=== PATIENT | male | born 1955 | race Caucasian/White ===

== ENCOUNTER 2020-02-29 07:11 | Emergency (ER) | payer MEDICARE, SELFPAY ==
[2020-02-29] VITALS (8 sets, daily range): BP systolic 120–145; BP diastolic 72–87; PULSE 67–102; RESP 18–23; TEMP 36.8–37.3; O2SAT 93–98; BMI 27.3
--- NOTE | 2020-02-29 07:06 | ECG_ITS ---
APPROVED REPORT Exam: Resting ECG HR:83 bpm ECG Measurements Heart Rate 83 AXES NE 170 P 48 QRSd 92 QRS -7 QT 362 T 30 QTc 425 <Conclusion> Normal sinus rhythm Minimal voltage criteria for LVH, may be normal variant Borderline ECG Electronically signed by : Armando Cruz, 03/04/2020 12:06:25
--- NOTE | 2020-02-29 07:16 | XR_ITS ---
PROCEDURE: XR CHEST 2V CLINICAL HISTORY: soa COMPARISON: CXR CHEST(2 VIEWS-NOT PORTABLE) from 06/06/2014 FINDINGS: Lower cervical diskectomy, degenerative thoracic scoliosis, and patchy left lower lobe infiltrate is noted. Soft tissues are intact IMPRESSION: Left lower lobe infiltrate Dictated by: Tomy Garcia 02/29/2020 08:10 Electronically signed by Tomy Garcia in [facility] 02/29/2020 08:10
[2020-02-29 07:26] LABS: Basophils # 0.1 K/mm3 (0-0.2); Basophils % 0.5 % (0.1-2.0); Eosinophils # 0.3 K/mm3 (0.0-0.4); Eosinophils % 2.6 % (0.1-12.0); Hematocrit 41.4 % (42.0-52.0); Hemoglobin 13.5 g/dL (14.1-18.0); Lymphocytes % 9.2 % (10-50); Mean Corpuscular HGB Conc 32.5 g/dL (31.8-35.4); Mean Corpuscular Hemoglobin 30.8 pg (27.0-31.2); Mean Corpuscular Volume 94.6 fl (80-94); Mean Platelet Volume 7.4 fl (7.4-10.4); Monocytes # 0.6 K/mm3 (0.1-1.0); Monocytes % 5.7 % (1.7-9.3); Neutrophils # 8.7 K/mm3 (1.8-7.8); Platelet Count 408 K/mm3 (142-424); Red Blood Count 4.38 M/mm3 (4.60-6.20); Red Cell Distribution Width 13.8 % (11.5-17.5); White Blood Count 10.6 K/mm3 (4.8-10.8)
[2020-02-29 07:29] LABS: Chloride 103 mmol/L (98-107); Potassium 4.4 mmoL/L (3.5-5.1); Sodium 139 mmol/L (136-145)
[2020-02-29 07:32] LABS: Anion Gap 11.4 mEq/L (5-15); Blood Urea Nitrogen 11 mg/dl (9-20); Carbon Dioxide 29 mmol/L (22.0-30.0); Creatinine Clearance Estimated 89 mL/min (50-200); Estimated Glomerular Filt Rate 114 ml/min (>60); GFR (African American) 137 ML/MIN (>60)
[2020-02-29 07:33] LABS: Calcium 8.5 mg/dl (8.4-10.2); Glucose 153 mg/dl (74-100)
--- NOTE | 2020-02-29 07:33 | HMH.EDCP ---
ED Disposition Condition on Discharge: Good - Critical Care Critical Care Time: No <Williams Martinez - Last Filed: 02/29/20 07:33> Condition on Discharge: Fair <Idris Hernandez - Last Filed: 02/29/20 19:06> Clinical Impression: Chest pain Qualifiers: Chest pain type: unspecified Qualified Code(s): R07.9 - Chest pain, unspecified Pneumonia Qualifiers: Pneumonia type: due to unspecified organism Laterality: left Lung location: unspecified part of lung Qualified Code(s): J18.9 - Pneumonia, unspecified organism Disposition: Still a Patient Instructions: DI for Pneumonia -- Adult, DI for Atypical Chest Pain Additional Instructions: Levaquin as prescribed. Additional instructions for PNEUMONIA: See your physician as soon as possible for further evaluation. Return immediately if you have an uncontrollable fever greater than 102 degrees, difficulty breathing or shortness of breath, persistent vomiting, or severe chest pain. Additional instructions for CHEST PAIN: See your physician as soon as possible for further evaluation. Return immediately if worsening chest pain, vomiting, shortness of breath, fever, coughing of blood. Prescriptions: levoFLOXacin [Levaquin 500mg tab] 500 mg PO DAILY #9 tab Transmission Status: Received by [facility] Referrals: Mukul Rodriguez [Primary Care Provider] - Attestation: On 02/29/20, the high probability of a clinically significant, sudden or life threatening deterioration of the following system(s) required my full and direct attention, intervention and personal management. The time I documented below is in addition to time spent performing reported procedures but includes the following listed in this critical care notation. Medical Decision Making - Medical Records Medical records reviewed: Yes: I reviewed the patient's medical records. - Erlin Inquiry Pt receiving controlled substance: No - Lab Data Lab results reviewed: Yes: I reviewed the patient's lab results. Result diagrams: 02/29/20 07:22 - Radiology Data #1 Image(s): Chest Image Reviewed: Yes I reviewed the patient's radiology image w/the ED provider Preliminary Findings: Normal/NAD <Marika Martinezshua - Last Filed: 02/29/20 07:33> - Lab Data Result diagrams: 02/29/20 07:22 02/29/20 07:22 - CT Data CT Scan: Chest (CTA) Time Received: 10:[address] Reviewed: Yes: I have viewed the radiologist's interpretation <Idris Hernandez - Last Filed: 02/29/20 19:06> Vital Signs: 02/29/20 07:11 02/29/20 08:11 02/29/20 09:00 Temperature 99.1 F Temperature Source Oral Pulse Rate Pulse Rate [Right Brachial] 87 92 H 67 Respiratory Rate 23 20 20 Blood Pressure Blood Pressure [Right Arm] 145/85 H 123/80 130/87 Blood Pressure Mean [Right Arm] 105 94 101 Blood Pressure Source Blood Pressure Source [Right Arm] Automatic Cuff Automatic Cuff Automatic Cuff Blood Pressure Position Blood Pressure Position [Right Arm] Sitting Sitting Sitting 02 Sat by Pulse Oximetry 95 98 96 Oxygen Delivery Method Nasal Cannula Room Air Room Air Oxygen Flow Rate (LPM) 2 02/29/20 09:30 02/29/20 10:00 02/29/20 10:30 Temperature Temperature Source Pulse Rate Pulse Rate [Right Brachial] 92 H 88 92 H Respiratory Rate 18 18 20 Blood Pressure Blood Pressure [Right Arm] 122/77 145/85 H 127/72 Blood Pressure Mean [Right Arm] 92 105 90 Blood Pressure Source Blood Pressure Source [Right Arm] Automatic Cuff Automatic Cuff Automatic Cuff Blood Pressure Position Blood Pressure Position [Right Arm] Sitting Sitting Sitting 02 Sat by Pulse Oximetry 98 93 L 95 Oxygen Delivery Method Room Air Room Air Room Air Oxygen Flow Rate (LPM) 02/29/20 11:00 02/29/20 12:52 Temperature 98.2 F Temperature Source Oral Pulse Rate 102 H Pulse Rate [Right Brachial] 102 H Respiratory Rate 18 18 Blood Pressure 120/72 Blood Pressure [Right Arm] 120/72 Blood Pressure Mean [Right Arm] 88 B
[2020-02-29 07:42] LABS: NT Pro Brain Natriuretic Pep. 48.1 pg/mL (0-125)
[2020-02-29 07:48] LABS: Troponin I < 0.01 ng/ml (0.00-0.034)
--- NOTE | 2020-02-29 08:25 | PC.NURSE ---
BRIGETTE SPOKE WITH KELLI HE IS GONNA COME OVER AND SEE PT
--- NOTE | 2020-02-29 08:45 | PC.NURSE ---
CALLED PHARMACY FOR CEFEPIME AND VANC CONSULT
--- NOTE | 2020-02-29 09:04 | HMH.CNCARD ---
History of Present Illness Consult date: 02/29/20 Consult reason: shortness of breath Chief complaint: SOA, CP Additional Medical History:: 1. Hypertension 2. Hyperlipidemia 3. History of prediabetes 4. History of smokeless tobacco use. 5. Coronary artery disease with history of syncope and collapse, 02/2020 A. Single-vessel CABG using keyhole surgery, 02/2020, Dr. Bhupinder Hall at the [facility] 6. Bilateral arthritis pain in the shoulders 7. History of cleft palate repair History of present illness: Pleasant 64-year-old gentleman presents the ED with some chest tightness and chest pain. Patient states that the pain started around 4 AM this morning and since he just previously had stenting of the LAD 5 days ago he decided to come to the hospital. He presently states his pain is 1 out of 10 and pressure like sensation. When the pain did start he did state it was about 4 out of 10. He did state that he feels like the pain is almost resolved. He did have a cardiac catheterization was due to [facility]. Patient denies any overt shortness of breath. Patient also denied any diaphoresis. He states his pain started at rest.Patient denies any recent cough or shortness of breath, patient denies any sore throat or headache, patient denies any loss of taste or smell, patient denies any malaise or fatigue, patient denies any abdominal pain nausea vomiting or diarrhea. (Williams Martinez) 8:00 AM at shift change, patient report received from Dr. Martinez, and care of the patient assumed by me at this time. Patient seen and examined. His chief complaint to me is shortness of breath. Says that he went for a walk yesterday and felt fine, but feels short of breath now. Has some chest pain in the center of his chest with breathing. Denies cough, hemoptysis, fever, leg pain or swelling. Says that he had a collapsed and required CPR on 02/16/2020 while out of town in [place]. Taken to the hospital there and had bypass surgery on his maker . States that he was released last after 6-day hospital stay. Currently pain-free. Shortness of breath improved on oxygen. (Idris Hernandez) The above history per Dr. Martinez and Dr. Hernandez. Patient relates visiting a were friend in [place] 2 weeks ago when he had a syncopal episode with collapse and loss of bowel and bladder control. Patient was subsequently treated with CPR by the friend and transferred to [facility] subsequently undergoing single-vessel bypass surgery by Dr. Bhupinder Hall. He had an uneventful postop course and was sent home 6 days later. Patient states he had been doing well even walking yesterday without complaints. This morning upon waking he noted some increase in shortness of breath with some substernal discomfort. At the current time patient denies any chest pain just shortness of breath that was worrisome to him. He now feels anxiety may have gotten the best of him. Initial work-up in the ER shows normal troponin, normal BNP and EKG with sinus rhythm and no acute ST segment changes. Chest x-ray is questionable for infiltrate and/or pleural effusion in the left chest area consistent with recent single-vessel bypass surgery. Cardiology consulted for evaluation and recommendations. [facility] History *Have you ever received a pneumonia vaccine?: Yes *Have you received a flu vaccine this season?: Yes - *Social History *Occupational Status:: retired *Travel in the last 8 weeks: Inside the [place] Family Hx:: No significant family history Meds Allergies Allergy/AdvReac Type Severity Reaction Status Date / Time No Known Allergies Allergy Unverified 08/24/17 15:03 Review of Systems - Review of Systems Review of systems:: pertinent systems reviewed and negative unless documented below - *Cardiovascular Reports chest pain, Reports shortness of breath - *Respiratory Reports shortness of breath, Denies cough - *Gastrointe
[2020-02-29 09:10] LABS: D-Dimer 2330 ng/mL (0-400)
--- NOTE | 2020-02-29 09:11 | CT_ITS ---
PROCEDURE: CT ANGIO CHEST CLINCIAL INDICATION: elevated d dimer COMPARISON: No exams were available for comparison TECHNIQUE: IV Contrast: 70ML OPTIRAY 350 Axial images obtained with sagittal and coronal reformats. All CT scans at the facility use one or more dose reduction, viz: automated exposure control, ma/kV adjustment per patient size (including targeted exams where dose is matched to indication, i.e. head), or iterative reconstruction technique. FINDINGS: Tracheobronchial tree is unremarkable. There is moderate size left pleural effusion with scattered areas of infiltration within the left upper lobe and left lower lobe regions. Thyroid is unremarkable. Patient is status post CABG. Coronary artery calcifications are present. There is a thin pericardial effusion. Heart is enlarged and subcentimeter mediastinal lymph nodes are noted. Partially visualized enhanced upper abdominal structures are for remarkable for a cholecystectomy. Adrenal glands, soft tissues, and bony structures are unremarkable except for a low cervical discectomy. IMPRESSION: Status post CABG, left pleural effusion, scattered infiltrates about the left hemithorax, no CT evidence of pulmonary emboli cardiomegaly Dictated by: Tomy Garcia 02/29/2020 10:30 Electronically signed by Tomy Garcia in [facility] 02/29/2020 10:30
--- NOTE | 2020-02-29 09:11 | PC.NURSE ---
Dr. Hernandez notified of d-dimer results.
[2020-02-29 09:29] LABS: Coronavirus 19 IgG Antibody Negative (Negative); Coronavirus 19 IgM Antibody Negative (Negative)
--- NOTE | 2020-02-29 09:35 | CA_ITS ---
APPROVED REPORT EXAM: Comprehensive 2D, Doppler, and color-flow Echocardiogram Pillar Man: Olga Lorenzo RVT Ht: 5 ft 9 in Wt: 185lbs BSA: 2.00 BP: 123/80 mmHg Indications: SOA,CABG 2 WKS AGO,CAD,HTN,HLD TDS-PTSCANNED SEMI-UPRIGHT 2D Dimensions LVOT 2.14 cm (M/F) 1.5-2.5 M-Mode Dimensions RVDd 2.66 cm (0.9-2.6) LVDd 4.95 cm (3.5-5.7) LVDs 3.64 cm (3.5-5.7) IVSd 0.89 cm (0.6-1.1) PWd 0.76 cm (0.6-1.1) EF (Teich) 51.60% FS 26.50% EDV (Teich) 115.50 mL ESV (Teich) 55.90 mL Left Ventricle Left atrium is mildly enlarged, left ventricle is normal size, mild concentric left ventricular hypertrophy, visually estimated ejection fraction 55% with no regional wall motion abnormality, endocardial surfaces are poorly visualized, grade 1 diastolic dysfunction seen without tissue Doppler evidence of raise left atrial pressure. Right Ventricle Right atrium and right ventricle are normal size and contractility. Aortic Valve Aortic valve is minimally thickened and fibrosed, there is no aortic stenosis or aortic insufficiency. Mitral Valve Mitral valve leaflets are minimally thickened, there is no mitral stenosis, there is mild mitral regurgitation. Tricuspid Valve Tricuspid valve grossly normal, there is mild tricuspid regurgitation, tricuspid regurgitation jet velocity is inadequate for calculation of the right ventricular systolic pressure. Pulmonic Valve Pulmonic valve is poorly visualized. Great Vessels Aortic root is normal size. Pericardium No significant pericardial effusion noted. Conclusion 1. Mildly enlarged left atrium, normal left ventricular size, mild concentric ventricular hypertrophy, visually estimated ejection fraction 55% with no regional wall motion abnormality, endocardial surfaces are poorly visualized, grade 1 diastolic dysfunction seen without tissue Doppler evidence of raise left atrial pressure. 2. Mild mitral and tricuspid regurgitation. 3. No significant pericardial effusion noted. Electronically signed by : Amilcar Santamaria, 02/29/2020 13:23:49
[2020-02-29 09:39] LABS: Adenovirus,PCR Not Detected (NotDetected); Bordetella Pertussis Not Detected (NotDetected); Chlamydophila Pneumoniae, PCR Not Detected (NotDetected); Coronavirus 19, PCR Not Detected (NotDetected); Coronavirus 229E Not Detected (NotDetected); Coronavirus NL63 Not Detected (NotDetected); Coronavirus OC43 Not Detected (NotDetected); Coronovirus HKU1,PCR Not Detected (NotDetected); Human Metapneumovirus Not Detected (NotDetected); Influenza A, PCR Not Detected (NotDetected); Influenza AH1, 2009 Not Detected (NotDetected); Influenza AH1, PCR Not Detected (NotDetected); Influenza AH3,PCR Not Detected (NotDetected); Influenza B, PCR Not Detected (NotDetected); Mycoplasma Pneumoniae, PCR Not Detected (NotDected); Parainfluenza 1, PCR Not Detected (NotDetected); Parainfluenza 2, PCR Not Detected (NotDetected); Parainfluenza 3, PCR Not Detected (NotDetected); Parainfluenza 4, PCR Not Detected (NotDetected); Respiratory Syncytial Virus Not Detected (NotDetected); Rhinovirus/Enterovirus Not Detected (NotDetected)
--- NOTE | 2020-02-29 10:04 | PC.NURSE ---
PT GONE TO CT , WHY THERE LAB IS DRAWING HIS REPEAT TROP , THEN HE IS GOING FOR ECHO THAT CARDIOLOGY ORDERED
[2020-02-29 10:43] LABS: Troponin I < 0.01 ng/ml (0.00-0.034)
== END 2020-02-29 12:53 | disposition still patient (30) ==
PROVIDERS: Family Medicine; Emergency Provider Emergency Medicine; PCP Pediatrics
DX: J18.9 Pneumonia, unspecified organism (principal); Z95.1 Presence of aortocoronary bypass graft; R06.02 Shortness of breath
CPT/HCPCS: 36415; 71046; 71275; 80048; 83880; 84484; 85025; 85378; 86328; 87581; 87633; 87798; 93005; 93306; 96365; 96367; 99284; J1956; J3370; Q9967

== ENCOUNTER 2020-03-28 08:44 | Outpatient (RCR) | payer MEDICARE, SELFPAY | END 2020-04-08 11:06 | disposition home or self-care (01) | LOC: PT 08:44 | PROVIDERS: Visit Provider Urology | DX: R07.9 Chest pain, unspecified (principal); R06.02 Shortness of breath; I25.2 Old myocardial infarction; E78.5 Hyperlipidemia, unspecified; I25.10 Atherosclerotic heart disease of native coronary artery without angina pectoris; Z95.1 Presence of aortocoronary bypass graft | CPT/HCPCS: 93798 ==

== ENCOUNTER → 2020-04-12 08:18 | Outpatient (CLI) | payer MEDICARE, SELFPAY ==
--- NOTE | 2020-04-12 08:19 | CA_ITS ---
APPROVED REPORT Early Interventionist: CT Laterality: Bilateral Study Quality: Good Indications: dizziness Risk Factors Hypertension: CABG, CAD, HTN Doppler Spectral Velocity Analysis ECA (R) 98.20/27.00 cm/s ECA (L) 99.20/20.20 cm/s dICA (R) 65.00/27.40 cm/s dICA (L) 73.30/29.90 cm/s Richie (R) 47.50/21.40 cm/s Richie (L) 83.80/35.20 cm/s pICA (R) 44.10/18.40 cm/s pICA (L) 61.40/26.90 cm/s dCCA (R) 67.40/25.00 cm/s dCCA (L) 71.10/21.40 cm/s pCCA (R) 135.80/34.70 cm/s pCCA (L) 112.20/32.60 cm/s Vert (R) 28.70/12.30 cm/s Vert (L) 30.50/7.20 cm/s ICA/CCA 1.00 ICA/CCA 1.20 Findings Duplex evaluation demonstrates stenosis of the right proximal internal carotid artery <20%. Duplex evaluation demonstrates stenosis of the left proximal internal carotid artery in the range of 20-49%,lower end of scale. Duplex evaluation demonstrates antegrade flow of the bilateral Vertebral Arteries. Conclusion Duplex evaluation demonstrates stenosis of the right proximal internal carotid artery <20%. Duplex evaluation demonstrates stenosis of the left proximal internal carotid artery in the range of 20-49%,lower end of scale. Duplex evaluation demonstrates antegrade flow of the bilateral Vertebral Arteries. Electronically signed by : Xander Laws MD 04/12/2020 16:22:57
== END ==
PROVIDERS: PCP Pediatrics; Visit Provider Urology
DX: R42 Dizziness and giddiness (principal)
CPT/HCPCS: 93880